=== PATIENT | female | born 1945 | race Caucasian/White ===

== ENCOUNTER 2017-04-22 13:37 | Emergency (ER) | payer MEDICARE, OTHER ==
[~2017-04-22] VITALS: Ht 160 cm; Wt 61.4 kg
[~2017-04-22 13:37] MED LIST: ASPIRIN 81M81 MG/TA2 PO; ASPIRIN E.C. 8181 MG PO; CALCIUM 600 W/V1 TAB PO; CARDIZEM CD 12120 MG PO; CARDIZEM120 MG PO; CELEBREX 200MG200 MG PO; CELEBREX200 MG PO; CIPRO 250MG TA250 MG PO; CIPRO 500MG TA500 MG PO; CRESTOR5 MG PO; DITROPAN 5MG TAB5 MG PO; DOXYCYCLINE 10100 MG PO; EYE DROPS; FLAGYL500 MG PO; LEVBID0.375 MG PO; LODINE XL500 MG PO; NEURONTIN100 MG/CAP PO; NORCO 325 MG-51 TAB PO; NORFLEX 10100 MG/TAB PO; NORFLEX100 MG PO; OMEGA-3 1000 MG1 CAP PO; OXYBUTYNIN5 MG PO; PRAVACHOL 40MG40 MG PO; PREMARIN 0.60.625 M1 PO; PREMARIN 0.60.625 MG PO; PROBIOTIC ACID1 EAC3 PO; RYZOLT100 MG PO; TIROSINT50 MC1 PO; TYLENOL 325MG325 MG PO; TYLENOL 500MG500 MG PO; ULTRAM 50MG TAB50 MG PO; VITAMIN D1000 IU PO; ZOFRAN 4MG T4 MG/TAB PO
[2017-04-22 13:39] VITALS: TEMP 98.6
[2017-04-22] MEDS ORDERED: NORFLEX 10100 MG/TAB PO (16:52)
[2017-04-22] MEDS ORDERED: ZOFRAN ODT4 MG PO (16:52)
[2017-04-22 17:44] VITALS: BP 144/81; PULSE 58
== END 2017-04-22 17:45 | disposition home or self-care (01) ==
LOC: COL.ER 13:37
DX: S16.1XXA Strain of muscle, fascia and tendon at neck level, initial encounter (principal); S00.83XA Contusion of other part of head, initial encounter; Z23 Encounter for immunization; Z87.39 Personal history of other diseases of the musculoskeletal system and connective tissue; Z79.82 Long term (current) use of aspirin; Z98.890 Other specified postprocedural states; W01.198A Fall on same level from slipping, tripping and stumbling with subsequent striking against other object, initial encounter

== ENCOUNTER 2017-12-05 13:41 | Outpatient (CLI) | payer MEDICARE ==
[~2017-12-05] VITALS: Ht 160 cm; Wt 84.1 kg
[~2017-12-05 13:41] MED LIST changes: +ZOFRAN ODT4 MG PO
[2017-12-05 14:01] VITALS: BP 118/60; PULSE 66; TEMP 98
== END 2017-12-05 15:02 | disposition home or self-care (01) ==
LOC: EUO 13:41
DX: M81.0 Age-related osteoporosis without current pathological fracture (principal)
CPT/HCPCS: J3489

== ENCOUNTER → 2017-12-11 | Outpatient (CLI) | payer MEDICARE | LOC: MC.RAD 10-31 14:00 | DX: Z12.31 Encounter for screening mammogram for malignant neoplasm of breast (principal) ==

== ENCOUNTER 2018-01-30 20:44 | Emergency (ER) | payer MEDICARE, OTHER ==
[~2018-01-30] VITALS: Ht 160 cm; Wt 62.7 kg
[2018-01-30 20:46] VITALS: TEMP 98.4
[2018-01-30 22:07] VITALS: BP 140/84; PULSE 56
== END 2018-01-30 22:10 | disposition home or self-care (01) ==
LOC: COL.ER 20:44
DX: S93.402A Sprain of unspecified ligament of left ankle, initial encounter (principal); Z79.82 Long term (current) use of aspirin; W10.9XXA Fall (on) (from) unspecified stairs and steps, initial encounter; Y92.009 Unspecified place in unspecified non-institutional (private) residence as the place of occurrence of the external cause

== ENCOUNTER 2018-03-04 13:17 | Emergency (ER) | payer MEDICARE, OTHER ==
[~2018-03-04] VITALS: Ht 160 cm; Wt 62.7 kg
[2018-03-04 13:21] VITALS: BP 179/89; TEMP 98.6
[2018-03-04] MEDS ORDERED: ZOFRAN 4MG T4 MG/TAB PO (14:21)
[2018-03-04] MEDS ORDERED: PERCOCET 325 MG1 TA2 PO (14:21)
[2018-03-04 15:02] VITALS: PULSE 66
== END 2018-03-04 15:03 | disposition home or self-care (01) ==
LOC: COL.ER 13:17
DX: S42.032A Displaced fracture of lateral end of left clavicle, initial encounter for closed fracture (principal); I10 Essential (primary) hypertension; Z79.82 Long term (current) use of aspirin; Z79.891 Long term (current) use of opiate analgesic; W01.0XXA Fall on same level from slipping, tripping and stumbling without subsequent striking against object, initial encounter; Y93.H2 Activity, gardening and landscaping; Y92.096 Garden or yard of other non-institutional residence as the place of occurrence of the external cause
CPT/HCPCS: J2270; Q4021

== ENCOUNTER → 2019-01-25 | Outpatient (CLI) | payer MEDICARE ==
[~2019-01-25] MED LIST changes: +PERCOCET 325 MG1 TA2 PO
== END ==
LOC: MC.RAD 13:15
DX: Z12.31 Encounter for screening mammogram for malignant neoplasm of breast (principal)

== ENCOUNTER → 2019-03-10 | Outpatient (CLI) | payer MEDICARE | LOC: MHCPAIN 13:11 | DX: G89.29 Other chronic pain (principal); M47.817 Spondylosis without myelopathy or radiculopathy, lumbosacral region; M54.16 Radiculopathy, lumbar region; M53.3 Sacrococcygeal disorders, not elsewhere classified; M96.1 Postlaminectomy syndrome, not elsewhere classified | CPT/HCPCS: G0463 ==

== ENCOUNTER → 2019-03-18 | Outpatient (CLI) | payer MEDICARE | LOC: MHCPAIN 08:21 | DX: M47.812 Spondylosis without myelopathy or radiculopathy, cervical region (principal); M54.12 Radiculopathy, cervical region | CPT/HCPCS: J1100; Q9967 ==

== ENCOUNTER 2019-04-09 14:13 | Outpatient (CLI) | payer MEDICARE ==
[~2019-04-09] VITALS: Ht 160 cm; Wt 63.2 kg
[2019-04-09 14:44] VITALS: BP 126/56; PULSE 63; TEMP 97.7
== END 2019-04-09 15:08 | disposition home or self-care (01) ==
LOC: EUO 14:13
DX: M85.80 Other specified disorders of bone density and structure, unspecified site (principal)
CPT/HCPCS: J3489

== ENCOUNTER → 2019-05-12 | Outpatient (CLI) | payer MEDICARE | LOC: MHCPAIN 10:42 | DX: G89.29 Other chronic pain (principal); M47.817 Spondylosis without myelopathy or radiculopathy, lumbosacral region; M54.16 Radiculopathy, lumbar region; M53.3 Sacrococcygeal disorders, not elsewhere classified; M96.1 Postlaminectomy syndrome, not elsewhere classified | CPT/HCPCS: G0463 ==

== ENCOUNTER → 2019-08-04 | Outpatient (CLI) | payer MEDICARE ==
[~2019-08-04] MED LIST changes: +COSOPT 2%-0.5%10 ML OS; +NEXIUM 20MG20 MG PO; +OMNICEF 300MG300 MG PO; +PRINIVIL10 MG PO
== END ==
LOC: MHCPAIN 11:17
DX: M47.817 Spondylosis without myelopathy or radiculopathy, lumbosacral region (principal); M54.16 Radiculopathy, lumbar region
CPT/HCPCS: G0463

== ENCOUNTER 2019-08-10 02:55 | Inpatient (IN) | payer MEDICARE ==
[2019-08-10] VITALS (10 sets, daily range): BP systolic 122–147; BP diastolic 66–81; PULSE 92–105; TEMP 97.8–98.8
[~2019-08-10] VITALS: Ht 160 cm; Wt 65.5 kg
[~2019-08-10 02:55] MED LIST changes: -COSOPT 2%-0.5%10 ML OS; -NEXIUM 20MG20 MG PO; -OMNICEF 300MG300 MG PO; -PRINIVIL10 MG PO
[2019-08-10 03:33] LABS: BASO # 0.1 (0.0-0.2); BASO % 0.5 % (0.0-2.0); EOS # 0.2 (0.0-0.7); EOS % 1.2 % (0-4.0); GRAN # 11.7 (1.4-6.5); GRAN % 88.3 % (42.2-75.2); HEMATOCRIT 43.5 % (37.0-47.0); HEMOGLOBIN 14.2 g/dl (12.5-16.0); LYMPH # 1.2 (1.2-3.4); LYMPH % 9.2 % (20.0-51.0); MEAN CELL VOLUME 91 fl (80.0-100.0); MEAN CORPUSCULAR HEMOGLOBIN 30 pg (27.0-31.0); MEAN CORPUSCULAR HGB CONC 33 g/dl (33.0-37.0); MEAN PLATELET VOLUME 9.1 fl (7.4-10.4); MONO # 0.1 (0.1-0.6); MONO % 0.6 % (1.7-9.3); PLATELET COUNT 309 K/mm3 (130-400); RED BLOOD COUNT 4.77 M/mm3 (4.10-5.30); REDCELL DISTRIBUTION WIDTH-CV 12.3 % (11.5-14.5)
[2019-08-10 03:42] LABS: ALANINE AMINOTRANSFERASE 245 U/L (9-52); ALBUMIN 4.7 gm/dL (3.5-5.0); ALKALINE PHOSPHATASE 133 U/L (50-136); ANION GAP 11 mmol/L (7-16); AST,SGOT 554 U/L (15-37); BILIRUBIN,TOTAL 0.8 mg/dL (0.0-1.0); BLOOD UREA NITROGEN 13 mg/dL (7-17); CARBON DIOXIDE 27 mmol/L (22-30); CHLORIDE 103 mmol/L (98-107); CREATININE, serum 0.92 (0.52-1.25); GLUCOSE 110 mg/dL (74-106); LIPASE 163 U/L (23-300); POTASSIUM 3.6 mmol/L (3.4-5.0); SODIUM 141 mmol/L (137-145)
[2019-08-10 04:13] LABS: TROPONIN-I < 0.012 ng/mL (0.000-0.035)
[2019-08-10 06:44] LABS: COLLECTION METHOD CLEAN CATCH
[2019-08-10 06:52] LABS: MUCOUS Present /lpf; PH 7 (5-8); SQUAMOUS EPITHELIAL None Seen /hpf; URINE APPEARANCE Clear; URINE BACTERIA None Seen /hpf; URINE BILIRUBIN Negative (NEGATIVE); URINE BLOOD 1+ (NEGATIVE); URINE COLOR Straw; URINE GLUCOSE Negative (NEGATIVE); URINE KETONE Negative (NEGATIVE); URINE LEUKOCYTE ESTERASE Negative (NEGATIVE); URINE NITRATE Negative (NEGATIVE); URINE PROTEIN(semi-quant) Negative (NEGATIVE); URINE RBC 0-2 /hpf; URINE UROBILINOGEN Negative (NEGATIVE)
--- NOTE | 2019-08-10 09:00 | NUR ---
Pt arrived to floor at this time with ER staff. Will orient to room and continue to [facility].
[2019-08-10] MEDS ORDERED: COSOPT 2%-0.5%10 ML OS (09:18)
[2019-08-10] MEDS ORDERED: NEXIUM 20MG20 MG PO (09:25)
--- NOTE | 2019-08-10 14:35 | NUR ---
Ed Physicians met with patient and patient's , Felice (ph#[phone]) to discuss discharge planning. Patient lives in [place] with her and sees Dr. Burnham for primary care. Patient has medications delivered by [facility] pharmacy in [place]. Patient states she has wheelchair, walker, and cane at home. Patient reports independence with ADLS prior to admission. Patient has Advance Directives in EMR. Patient plans to return home upon discharge. SW to continue to follow as needed.
--- NOTE | 2019-08-10 14:44 | NUR ---
Per FANY Goldberg, ONE time dose of Zofran given outside paramaters for acute nuasea.
--- NOTE | 2019-08-10 18:12 | NUR ---
PT has had difficult afternoon since returning from OR. Abd is soft and non-tender with 4 sites PRIYANK and closed with swiftset. Pt has been nauseated, dry heaving often, PRN nause meds provided and other non-pharm measures.Bolus given after report of (+) blood cultures this afternoon. Pt continues to have nausea and pain despite PRN meds. Pain is now to head. Resting in bed with IVF to LAC. Will give bedside shift report to nightshift nurse who will resume care.
--- NOTE | 2019-08-10 22:00 | NUR ---
Patient assessed at this time. Alert and oriented x 4, but very drowsy. Stated she hadn't slept in over 24 hours and it is catching up with her. NS running at 125 ml/hr to peripheral IV to left AC per orders. Site is without redness, warmth, swelling, and pain. Denies having pain and discomfort. LS CTA. Respirations even and unlabored. LS CTA. HRR. Telemetry in place: NS. Capillary refill less than 3 seconds. Non-tenting skin turgor. BSAx4. Abdomen soft, tender when touched. 4 lap mari sites are open to air. Sites without redness, warmth, swelling, and pain. No edema. Voices no questions, needs, or concerns at this time. Resting in bed with call light within reach.
[2019-08-11] VITALS (7 sets, daily range): BP systolic 132–171; BP diastolic 61–87; PULSE 80–101; TEMP 98–99.4
--- NOTE | 2019-08-11 03:30 | NUR ---
Patients IV to left AC with redness and swelling. Does report discomfort to site. IV fluids stopped. This nurse attempted restart x 1, and had another nurse attempt x 2 without success. Requested warehouse logistics coordinator to attempt restart, and stated she will come up when she has a chance. Patient was given PRN Ultram for pain. Denies nausea. Given applesauce as requested. Voices no further questions, needs, or concerns at this time. Call light is within reach. at bedside.
--- NOTE | 2019-08-11 06:13 | NUR ---
lease administration supervisor able to start IV to right AC. Given IV ABXs per ordes. Voices no questions, needs, or concerns at this time. No furhter complaints of pain or discomfort voiced at this time. Resting in bed with call light within reach.
--- NOTE | 2019-08-11 07:15 | NUR ---
Report received from CHAZ Stockton. PT in bed resting with eyes closed, will continue to monitor.
[2019-08-11 09:08] LABS: MEAN CELL VOLUME 92 fl (80.0-100.0); MEAN CORPUSCULAR HGB CONC 33 g/dl (33.0-37.0); MEAN PLATELET VOLUME 9.9 fl (7.4-10.4); PLATELET COUNT 221 K/mm3 (130-400); RED BLOOD COUNT 3.97 M/mm3 (4.10-5.30); REDCELL DISTRIBUTION WIDTH-CV 12.9 % (11.5-14.5)
[2019-08-11 09:10] LABS: HEMATOCRIT 36.4 % (37.0-47.0); HEMOGLOBIN 12.1 g/dl (12.5-16.0); MEAN CORPUSCULAR HEMOGLOBIN 30 pg (27.0-31.0)
[2019-08-11 09:28] LABS: ALBUMIN 3.5 gm/dL (3.5-5.0); BILIRUBIN,TOTAL 2.3 mg/dL (0.0-1.0); CALCIUM 8.3 mg/dL (8.4-10.2); CREATININE, serum 0.69 (0.52-1.25); POTASSIUM 3.9 mmol/L (3.4-5.0); TOTAL PROTEIN 6.3 gm/dL (6.4-8.2)
--- NOTE | 2019-08-11 09:44 | NUR ---
Assessment charted. Pt feeling okay today, slept well alst night. Notified derrek of critical WBC. Pt up ambulating with family. Assisted lab with lab draw this am. IVF to RA/C. Abd sites are well approximated and open to air. Denies other needs, family at bedside, will continue to montior.
[2019-08-11 11:33] LABS: BAND 1 % (0-10); LYMPHOCYTE 5 % (20.0-51.0); NEUTROPHILS 89 % (42.0-75.2); OVALOCYTES 1+; PLATELET ESTIMATE NORMAL (NORMAL)
--- NOTE | 2019-08-11 17:05 | NUR ---
Pt has done well over shift. Up to bathroom with assistance as needed, PRNA pin meds provided per request. Pt doing well, discussed options for tomorrow for ERCP, pt is agreeable but no orders received. will give bedside shift report to [facility] nurse who will resume care.
--- NOTE | 2019-08-11 20:20 | NUR ---
Patient assessed at this time. Alert and oriented x 4, and able to make needs known. Reports level 5 pain to right side. Given PRN Ultram for pain as requested. Peripheral IV to right AC. NS running at 75 ml/hr per orders. Site is without redness, warmth, swelling, and pain. LS CTA in upper lobes, diminished in lower. Reports SOB with exertion. Reports cough with clear phlegm. Noted thick yellow drainage in back of throat. Given hot tea as requested. Respirations even and unalbored. HRR. Telemetry in place: NS. Capillary refill less than 3 seconds. Non-tenting skin turgor. BSAx4. 4 lap sites to abdomen open to air. Areas are without redness, warmth, swelling, and drainage. No edema. Wearing SCDs. Voices no questions, needs, or concerns at this time. Resting in bed with call light within reach.
--- NOTE | 2019-08-11 22:15 | NUR ---
Patient continues to have pain. Given PRN Morphine as requested. Also given PRN Zofran, as patient stated that she tends to get nauseous with Morphine. Voices no furhter questions, needs, or concerns at this time. Resting in bed with call light within reach. remains at bedside.
[2019-08-12 03:08] VITALS: BP 143/61; PULSE 77; TEMP 98.5
--- NOTE | 2019-08-12 04:25 | NUR ---
Patient given PRN Morphine and Zofran for pain at this time as requested for pain and nausea. Voices no further questions, needs, or concerns at this time.
--- NOTE | 2019-08-12 05:56 | NUR ---
Patient resting in bed. No further complaints of pain. Consent printed and taken to patient. Patient would like to talk to the physician about ERCP prior to signing the consent to go over procedure details, risks and benefits, etc. Voices no further questions, needs, or concerns. Resting in bed with call light within reach. remains at bedside.
[2019-08-12 07:06] LABS: BASO # 0.1 (0.0-0.2); BASO % 0.3 % (0.0-2.0); EOS # 0.3 (0.0-0.7); EOS % 1.9 % (0-4.0); GRAN % 81.7 % (42.2-75.2); HEMATOCRIT 35.2 % (37.0-47.0); HEMOGLOBIN 11.6 g/dl (12.5-16.0); LYMPH # 1.7 (1.2-3.4); LYMPH % 10.9 % (20.0-51.0); MEAN CELL VOLUME 92 fl (80.0-100.0); MEAN CORPUSCULAR HEMOGLOBIN 30 pg (27.0-31.0); MEAN CORPUSCULAR HGB CONC 33 g/dl (33.0-37.0); MEAN PLATELET VOLUME 9.8 fl (7.4-10.4); MONO # 0.7 (0.1-0.6); MONO % 4.5 % (1.7-9.3); PLATELET COUNT 222 K/mm3 (130-400); RED BLOOD COUNT 3.81 M/mm3 (4.10-5.30); REDCELL DISTRIBUTION WIDTH-CV 13.2 % (11.5-14.5)
[2019-08-12 07:15] LABS: ALBUMIN 3.5 gm/dL (3.5-5.0); BILIRUBIN UNCONJUGATED 0.3 mg/dL (0.0-1.1); BILIRUBIN,DIRECT 0.6 mg/dL (0.0-0.4); BILIRUBIN,TOTAL 0.9 mg/dL (0.0-1.0); CALCIUM 8.7 mg/dL (8.4-10.2); CREATININE, serum 0.7 (0.52-1.25); POTASSIUM 3.4 mmol/L (3.4-5.0); TOTAL PROTEIN 6.3 gm/dL (6.4-8.2)
--- NOTE | 2019-08-12 07:27 | NUR ---
Report given to day shift nurse.
[2019-08-12 08:05] VITALS: BP 150/78; PULSE 84; TEMP 98.2
--- NOTE | 2019-08-12 08:15 | NUR ---
Pt awake and alert this morning, no C/O pain at this time, shift assessments complete, left Pt call light in reach, bed in lowest position.
[2019-08-12 12:28] VITALS: BP 148/76; PULSE 75; TEMP 98
[2019-08-12 16:22] VITALS: BP 156/68; PULSE 71; TEMP 98.6
--- NOTE | 2019-08-12 18:25 | NUR ---
Pt resting in the room today, some C/O pain in her abdomen, not needing medication for relief, VS have remained stable.
--- NOTE | 2019-08-12 19:45 | NUR ---
Seen patient awake, lying on bed. Patient is alert and oriented. Day shift nurse Isauro, verbalized IV line is not working well. Reinsertion needed. supervisor international reservations reinserted the peripheral line to right hand G22. Call button within reach.
--- NOTE | 2019-08-12 21:30 | NUR ---
Patient at bed, awake. Patient verbalized having pain of 4/10, all over her body. PRN Tramadol given.
[2019-08-12 21:36] VITALS: BP 156/55; PULSE 72; TEMP 99
[2019-08-13 00:39] VITALS: BP 157/68; PULSE 71; TEMP 98.4
--- NOTE | 2019-08-13 03:36 | NUR ---
Patient verbalized pain of 5/10, mostly on her right rib. Checked on her Lap mari incision sites, dry, clean and intact. No redness noted. PRN Tramadol given. Assisted patient to the bathroom to urinate.
--- NOTE | 2019-08-13 03:38 | NUR ---
Re-applied SCD to both lower extremities after patient went to the bathroom.
[2019-08-13 04:32] VITALS: BP 161/69; PULSE 68; TEMP 98.5
[2019-08-13 06:09] LABS: BASO # 0.1 (0.0-0.2); BASO % 0.5 % (0.0-2.0); EOS # 0.4 (0.0-0.7); EOS % 3.2 % (0-4.0); GRAN # 9.1 (1.4-6.5); GRAN % 74.8 % (42.2-75.2); HEMATOCRIT 40.4 % (37.0-47.0); HEMOGLOBIN 13.3 g/dl (12.5-16.0); LYMPH # 1.9 (1.2-3.4); LYMPH % 15.6 % (20.0-51.0); MEAN CELL VOLUME 92 fl (80.0-100.0); MEAN CORPUSCULAR HEMOGLOBIN 30 pg (27.0-31.0); MEAN CORPUSCULAR HGB CONC 33 g/dl (33.0-37.0); MEAN PLATELET VOLUME 9.6 fl (7.4-10.4); MONO # 0.6 (0.1-0.6); MONO % 5.1 % (1.7-9.3); PLATELET COUNT 236 K/mm3 (130-400); REDCELL DISTRIBUTION WIDTH-CV 12.9 % (11.5-14.5)
[2019-08-13 06:24] LABS: ALBUMIN 3.9 gm/dL (3.5-5.0); BILIRUBIN,TOTAL 0.8 mg/dL (0.0-1.0); CALCIUM 8.9 mg/dL (8.4-10.2); CREATININE, serum 0.64 (0.52-1.25); POTASSIUM 3.6 mmol/L (3.4-5.0); TOTAL PROTEIN 6.8 gm/dL (6.4-8.2)
--- NOTE | 2019-08-13 07:26 | NUR ---
Endorsed patient to Isauro day shift nurse. Patient is asleep on bed. Call button within reach.
[2019-08-13 07:48] VITALS: BP 148/76; PULSE 67; TEMP 98.2
--- NOTE | 2019-08-13 09:19 | NUR ---
Awake and alert this morning upon entry, some C/O abdominal pain, medications given for relief, spouse in room, shift assessment complete, left Pt call light in reach, bed in lowest position.
[2019-08-13] MEDS ORDERED: OMNICEF 300MG300 MG PO (11:27)
[2019-08-13] MEDS ORDERED: PRINIVIL10 MG PO (11:27)
--- NOTE | 2019-08-13 13:37 | NUR ---
The patient is to discharge back home with her today, 08/13. SW presented and explained the IM form to the patient. The patient verbalized understanding, signed, and she was provided a copy. No additional needs at this time.
--- NOTE | 2019-08-13 14:18 | NUR ---
Pt discharged to home, escorted to entrance, left with spouse via private transportation.
== END 2019-08-13 14:19 | disposition home or self-care (01) | DRG 854 ==
LOC: COL.ER 02:55 → MEDICAL 06:46
PROVIDERS: Emergency Medicine; Physician Assistant; Surgery; ADMIT Hospitalist
PROC: 8E0W4CZ Robotic Assisted Procedure of Trunk Region, Percutaneous Endoscopic Approach (ICD-10-PCS; 2019-08-10)
PROC: 0FT44ZZ Resection of Gallbladder, Percutaneous Endoscopic Approach (ICD-10-PCS; principal; 2019-08-10 12:00)
DX: A41.51 Sepsis due to Escherichia coli [E. coli] (principal); E87.2 Acidosis; K80.42 Calculus of bile duct with acute cholecystitis without obstruction; G89.29 Other chronic pain; M54.9 Dorsalgia, unspecified; K21.9 Gastro-esophageal reflux disease without esophagitis; M54.2 Cervicalgia; E78.5 Hyperlipidemia, unspecified; E03.9 Hypothyroidism, unspecified; I10 Essential (primary) hypertension; M81.0 Age-related osteoporosis without current pathological fracture; R53.81 Other malaise; Z98.1 Arthrodesis status; Z90.710 Acquired absence of both cervix and uterus; Z90.49 Acquired absence of other specified parts of digestive tract; Z85.71 Personal history of Hodgkin lymphoma
CPT/HCPCS: 99222-AI; 99231-AI; 99232-AI; 99239; A4216; C1769; C9113; J0690; J0696; J1100; J2270; J2370; J2405; J2550; J2704; J2710; J3010; J7030; J7120; Q9967

== ENCOUNTER → 2020-03-15 | Outpatient (CLI) | payer OTHER, MEDICARE ==
[~2020-03-15] MED LIST changes: +COSOPT 2%-0.5%10 ML OS; +NEXIUM 20MG20 MG PO; +OMNICEF 300MG300 MG PO; +PRINIVIL10 MG PO
== END ==
LOC: MHCPAIN 09:26
DX: M47.817 Spondylosis without myelopathy or radiculopathy, lumbosacral region (principal); M96.1 Postlaminectomy syndrome, not elsewhere classified; M54.5 Low back pain; M53.3 Sacrococcygeal disorders, not elsewhere classified; M54.16 Radiculopathy, lumbar region
CPT/HCPCS: G0463

== ENCOUNTER 2022-11-01 17:13 | Observation (INO) | payer MEDICARE ==
[~2022-11-01] VITALS: Ht 157.5 cm; Wt 63.0 kg
[2022-11-01 18:03] LABS: BASO % 0.5 % (0.0-2.0); EOS # 0.3 K/mm3 (0.0-0.7); EOS % 3.8 % (0.0-4.0); GRAN # 4.3 K/mm3 (1.4-6.5); HEMATOCRIT 41.9 % (37.0-47.0); HEMOGLOBIN 14.3 g/dl (12.5-16.0); LYMPH # 2.7 K/mm3 (1.2-3.4); LYMPH % 33.7 % (20.0-51.0); MEAN CELL VOLUME 90 fl (80.0-100.0); MEAN CORPUSCULAR HEMOGLOBIN 31 pg (27-31); MEAN CORPUSCULAR HGB CONC 34 g/dl (33.0-37.0); MONO # 0.6 K/mm3 (0.1-0.6); MONO % 7.7 % (1.7-9.3); PLATELET COUNT 296 K/mm3 (130-400); RED BLOOD COUNT 4.67 M/mm3 (4.10-5.30); REDCELL DISTRIBUTION WIDTH-CV 12.1 % (11.5-14.5)
[2022-11-01 18:12] LABS: PROTHROMBIN TIME 11.1 SECONDS (9.7-12.8)
[2022-11-01 18:23] LABS: ALBUMIN 4.3 gm/dL (3.4-4.8); BILIRUBIN,TOTAL 0.8 mg/dL (0.2-1.2); C-REACTIVE PROTEIN 0.12 mg/dL (0.00-0.50); CALCIUM 10.3 mg/dL (8.4-10.2); CREATININE, serum 0.85 mg/dL (0.57-1.11); POTASSIUM 4.5 mmol/L (3.5-4.5); TOTAL PROTEIN 7.2 gm/dL (6.2-8.1)
[2022-11-01 22:34] VITALS: BP 145/67; PULSE 89; TEMP 98
[2022-11-02] VITALS (7 sets, daily range): BP systolic 120–150; BP diastolic 71–86; PULSE 72–91; TEMP 98–98.4
[2022-11-02] MEDS ORDERED: CYMBALTA 20MG20 MG PO
[2022-11-02] MEDS ORDERED: LIPITOR 10MG10 MG PO (00:02)
[2022-11-02] MEDS ORDERED: COMBIGAN 0.2%-0.5 ML OD (00:07)
[2022-11-02] MEDS ORDERED: ZYRTEC5 MG PO (00:08)
[2022-11-02] MEDS ORDERED: XALATAN EYE DROPS OU (00:16)
[2022-11-02] MEDS ORDERED: PRILOSEC 20MG20 MG PO (00:19)
[2022-11-02] MEDS ORDERED: TURMERIC500 MG PO (00:20)
[2022-11-02] MEDS ORDERED: VITAMIN E1000 U/CAP PO (00:21)
[2022-11-02 06:24] LABS: BASO # 0.1 K/mm3 (0.0-0.2); BASO % 0.9 % (0.0-2.0); EOS # 0.3 K/mm3 (0.0-0.7); EOS % 3.6 % (0.0-4.0); GRAN # 4.6 K/mm3 (1.4-6.5); GRAN % 56.1 % (42.2-75.2); HEMATOCRIT 39.6 % (37.0-47.0); HEMOGLOBIN 13.8 g/dl (12.5-16.0); LYMPH # 2.5 K/mm3 (1.2-3.4); LYMPH % 30.5 % (20.0-51.0); MEAN CELL VOLUME 88 fl (80.0-100.0); MEAN CORPUSCULAR HEMOGLOBIN 31 pg (27-31); MEAN CORPUSCULAR HGB CONC 35 g/dl (33.0-37.0); MEAN PLATELET VOLUME 9.6 fl (7.4-10.4); MONO # 0.7 K/mm3 (0.1-0.6); MONO % 8.7 % (1.7-9.3); PLATELET COUNT 299 K/mm3 (130-400); RED BLOOD COUNT 4.48 M/mm3 (4.10-5.30); REDCELL DISTRIBUTION WIDTH-CV 12.2 % (11.5-14.5)
[2022-11-02 06:47] LABS: CALCIUM 9.5 mg/dL (8.4-10.2); CHOLESTEROL RISK RATIO 2.3; CREATININE, serum 0.81 mg/dL (0.57-1.11); MAGNESIUM 2.1 mg/dL (1.6-2.6); POTASSIUM 4.2 mmol/L (3.5-4.5)
--- NOTE | 2022-11-02 07:31 | NUR ---
Pt assessment complete. Pt is resting in bed upon entry, she is A/O x4. Her breathing is even and unlabored on RA. Pt denies SOB. Pt denies any pain. No N/T. Denies any visual changes at this time. R eye is still bloodshot. Neuro checks WNL. POC discussed with patient, who verbalizes understanding. Call light within reach.
[2022-11-02 09:24] LABS: TROPONIN-I 0.017 ng/mL (0.00-0.033)
--- NOTE | 2022-11-02 10:45 | NUR ---
Pt states she has had three loose BM's today.
--- NOTE | 2022-11-02 16:10 | NUR ---
SW met with patient at bedside to complete intake. Patients Felice ([phone]) sleeping on bench and grandson Chante Grubbs ([phone]) present at bedside. Patient lives at home with her Felice in [place]. She is normally fully independent with her ADL's and does not utilize any DME to assist with mobility at home, however does have access to a cane and a walker at home. She has no home oxyggen needs. PCP is Dr.Sara Brady and she utilizes [facility] for short term prescriptions and [email or web address] in for nursing home medications. Patient does have a DPOA-HC established listing [facility],Lisa and Emely. Per patient, Everett (her first ) and Emely (her daughter) are both . Lisa ([phone]) is the only living DPOA-HC. [place] attempted to contact hospitalist to place PT/OT/ST orders in but was unsuccessful. [place]TE then asked patients RN to place orders. Patient would like to return home once medically ready pending therapy rec's. Discharge plan: Home (pending PT/OT rec's)
--- NOTE | 2022-11-02 19:05 | NUR ---
Pt had uneventful day. Neuro checks WNL. Speech to staff was normal and not scattered. Per the patient's grandson she is mixing up words occasionally. Head and back pain improved with PRN Tylenol. POC discussed with patient and her family. Call light within reach.
[2022-11-03 04:03] VITALS: BP 148/72; PULSE 84; TEMP 98.7
[2022-11-03 07:31] LABS: CALCIUM 9.2 mg/dL (8.4-10.2); CREATININE, serum 0.85 mg/dL (0.57-1.11)
[2022-11-03 08:23] VITALS: BP 135/67; PULSE 84; TEMP 98.5
[2022-11-03 08:25] LABS: BASO # 0.1 K/mm3 (0.0-0.2); BASO % 0.8 % (0.0-2.0); EOS # 0.4 K/mm3 (0.0-0.7); EOS % 4.7 % (0.0-4.0); GRAN # 4.2 K/mm3 (1.4-6.5); GRAN % 55.7 % (42.2-75.2); HEMATOCRIT 39.7 % (37.0-47.0); HEMOGLOBIN 13.7 g/dl (12.5-16.0); LYMPH # 2.3 K/mm3 (1.2-3.4); LYMPH % 31.2 % (20.0-51.0); MEAN CELL VOLUME 89 fl (80.0-100.0); MEAN CORPUSCULAR HEMOGLOBIN 31 pg (27-31); MEAN CORPUSCULAR HGB CONC 35 g/dl (33.0-37.0); MONO # 0.6 K/mm3 (0.1-0.6); MONO % 7.5 % (1.7-9.3); PLATELET COUNT 277 K/mm3 (130-400); RED BLOOD COUNT 4.44 M/mm3 (4.10-5.30); REDCELL DISTRIBUTION WIDTH-CV 12.4 % (11.5-14.5)
[2022-11-03 12:45] VITALS: BP 143/76; PULSE 79; TEMP 98.3
[2022-11-03 16:06] VITALS: BP 138/71; PULSE 86; TEMP 98.3
[2022-11-03 19:35] VITALS: BP 149/71; PULSE 68; TEMP 98.3
[2022-11-03 23:36] VITALS: BP 147/75; PULSE 74; TEMP 97.5
[2022-11-04 04:37] VITALS: BP 145/83; PULSE 76; TEMP 97.7
[2022-11-04 06:35] LABS: BASO % 0.3 % (0.0-2.0); GRAN # 6.2 K/mm3 (1.4-6.5); GRAN % 86.4 % (42.2-75.2); HEMATOCRIT 42.7 % (37.0-47.0); HEMOGLOBIN 14.4 g/dl (12.5-16.0); LYMPH # 0.9 K/mm3 (1.2-3.4); LYMPH % 12.2 % (20.0-51.0); MEAN CELL VOLUME 90 fl (80.0-100.0); MEAN CORPUSCULAR HEMOGLOBIN 30 pg (27-31); MEAN CORPUSCULAR HGB CONC 34 g/dl (33.0-37.0); MEAN PLATELET VOLUME 9.2 fl (7.4-10.4); MONO # 0.1 K/mm3 (0.1-0.6); MONO % 0.8 % (1.7-9.3); PLATELET COUNT 301 K/mm3 (130-400); RED BLOOD COUNT 4.73 M/mm3 (4.10-5.30); REDCELL DISTRIBUTION WIDTH-CV 12.1 % (11.5-14.5)
[2022-11-04 06:45] LABS: CALCIUM 9.8 mg/dL (8.4-10.2); CREATININE, serum 0.83 mg/dL (0.57-1.11); POTASSIUM 4.2 mmol/L (3.5-4.5)
[2022-11-04 07:27] VITALS: BP 156/85; PULSE 81; TEMP 98.5
[2022-11-04 11:39] VITALS: BP 135/79; PULSE 93; TEMP 97.9
[2022-11-04] MEDS ORDERED: LIPITOR 40MG TA40 MG PO (15:31)
--- NOTE | 2022-11-04 16:12 | NUR ---
Pt discharge instructions given. All questions answered. Pt escorted out of facility via wheelchair by COURTNEY Barron.
== END 2022-11-04 16:12 | disposition home or self-care (01) ==
LOC: COL.ER 17:13 → MEDICAL 20:23
PROVIDERS: Family Medicine; Student in an Organized Health Care Education/Training Program; ADMIT Internal Medicine
DX: R07.89 Other chest pain (principal); G89.29 Other chronic pain; M54.2 Cervicalgia; M54.9 Dorsalgia, unspecified; K21.9 Gastro-esophageal reflux disease without esophagitis; I47.1 Supraventricular tachycardia; E78.5 Hyperlipidemia, unspecified; C85.90 Non-Hodgkin lymphoma, unspecified, unspecified site; I10 Essential (primary) hypertension; H11.32 Conjunctival hemorrhage, left eye; E03.9 Hypothyroidism, unspecified; Z79.82 Long term (current) use of aspirin; Z79.899 Other long term (current) drug therapy; Z98.890 Other specified postprocedural states; Z79.890 Hormone replacement therapy
CPT/HCPCS: A9575; C9113; G0378; J0360; J1200; J1650; J2060; J2930; J7120